=== PATIENT | male | born 1945 | race Caucasian/White ===

== ENCOUNTER 2016-09-29 10:59 | Inpatient (IN) | payer OTHER, MEDICAID ==
[~2016-09-29] VITALS: Ht 188 cm; Wt 60.8 kg
[~2016-09-29 10:59] MED LIST: ACET-6134 PO; ASCO500T45 PO; ASPI81EC97 PO; BENZ1TAB24 PO; CYAN500T8 PO; DEPSPR125 PO; DOCU-67 PO; EXE9.5T TD; LEVO500T6 GT; MAGN400S60 PO; MEMA10TA PO; PANT40EC PO; SIMV10TA1 PO; VITB12 PO
--- NOTE | 2016-09-29 10:59 | NUR ---
Patient [facility] from [facility], triaged by RN. Waiting for an available bed.
--- NOTE | 2016-09-29 11:11 | NUR ---
Patient transferred to bed 4 for further care. RN evaluating patient at bedside.
[2016-09-29 11:14] VITALS: BP 134/86
--- NOTE | 2016-09-29 11:15 | NUR ---
70 YO MALE BIB EMS FROM [facility] FOR G TUBE REPLACEMENT. HX OF EMENTIA& SCHIZOPHRENIA. PT ACTING NEUROLOGICALLY AT BASE LINE. DENIES N/V/D; SKIN IS PINK/WARM/DRY; AAOX4 WITH EVEN AND STEADY GAIT; LUNGS CLEAR BL; HR EVEN AND REGULAR; PT DENIES ANY FEVER, CP, SOB, OR COUGH AT THIS TIME; PATIENT STATES PAIN OF 0/10 AT THIS TIME; VSS; PATIENT POSITIONED FOR COMFORT; HOB ELEVATED; BEDRAILS UP X2; BED DOWN. ER MD MADE AWARE OF PT STATUS.
[2016-09-29] MEDS ORDERED: NACL 0.9% 1,000 ML IV SCH ×2 (11:38→13:05)
--- NOTE | 2016-09-29 11:38 | NUR ---
MD UNABLE TO PLACE G TUBE DUE TO STOMA BEING CLOSED. WILL ADMIT FOR FURTHER CARE.
[2016-09-29] MEDS ORDERED: FAMOTIDINE 20 MG/2 ML VIAL IVP ONE (11:40)
[2016-09-29] MEDS ORDERED: ONDANSETRON 4 MG/2 ML VIAL IVP ONE (11:40)
[2016-09-29] MEDS ORDERED: LORazepam 2 MG/ML VIAL IVP ONE (11:55)
[2016-09-29] MEDS ORDERED: LORazepam 2 MG/ML VIAL IM ONE (11:55)
[2016-09-29] MEDS ORDERED: LORazepam 2 MG/ML VIAL ONE (11:59)
[2016-09-29 12:21] LABS: BASOPHILS # (AUTO) 0.3 K/uL (0.00-0.22); BASOPHILS % (AUTO) 3.7 % (0.0-2.0); EOSINOPHILS # (AUTO) 0.1 K/uL (0-0.4); EOSINOPHILS % (AUTO) 1.2 % (0.0-4.0); HEMOGLOBIN 14.9 g/dL (12.0-18.0); LYMPHOCYTES # (AUTO) 1.9 K/uL (2.0-11.5); MEAN CORPUSCULAR HEMOGLOBIN 32 pg (27-31); MEAN CORPUSCULAR HGB CONC 32 g/dL (33-37); MEAN CORPUSCULAR VOLUME 100 fL (80-94); MONOCYTES # (AUTO) 0.4 K/uL (0.8-1.0); MONOCYTES % (AUTO) 6.1 % (1.7-9.3); NEUTROPHILS # (AUTO) 4.2 K/uL (1.8-7.7); PLATELET COUNT (AUTO) 166 K/uL (140-450); RED BLOOD CELL COUNT(AUTO) 4.61 MIL/uL (4.20-6.10); RED CELL DISTRIBUTION WIDTH 13.9 % (11.6-13.7); WHITE BLOOD COUNT (AUTO) 6.9 K/uL (4.8-10.8)
[2016-09-29] MEDS ORDERED: MULT1SGL58 PO (12:32)
[2016-09-29] MEDS ORDERED: DEP250L GT (12:32)
[2016-09-29] MEDS ORDERED: TYL650S GT (12:32)
[2016-09-29 12:48] LABS: ALBUMIN 3.2 g/dL (3.4-5.0); CALCIUM 9.1 mg/dL (8.5-10.1); CARBON DIOXIDE 30.8 mmol/L (21-32); CREATININE 0.8 mg/dL (0.7-1.3); TOTAL BILIRUBIN 0.3 mg/dL (0.0-1.0); TOTAL PROTEIN, SERUM 7.8 g/dL (6.4-8.2)
[2016-09-29 12:52] LABS: POTASSIUM 5.8 mmol/L (3.5-5.1)
[2016-09-29] MEDS ORDERED: HYDROcodone/APAP 7.5/325 MG 1 TAB PO PRN (13:05)
[2016-09-29] MEDS ORDERED: MORPHINE SULFATE 2 MG/ML SYR IVP PRN (13:05)
[2016-09-29] MEDS ORDERED: ONDANSETRON 4 MG/2 ML VIAL IM/IVP PRN (13:05)
[2016-09-29] MEDS ORDERED: ACETAMINOPHEN 325 MG TAB PO PRN (13:05)
[2016-09-29] MEDS ORDERED: DOCUSATE SODIUM 100 MG GELCAP PO PRN (13:05)
[2016-09-29 13:28] LABS: PROTHROMBIN TIME 9.9 secs (10.8-13.4)
[2016-09-29] MEDS ORDERED: diphenhydrAMINE 50 MG/ML VIAL IVP SCH (13:30)
[2016-09-29 13:37] LABS: CHOL/HDL RATIO 4.8 (1-4.5); FREE T4 (FREE THYROXINE) 0.98 ng/dL (0.76-1.46); MAGNESIUM 2.1 mg/dL (1.8-2.4); PHOSPHORUS 3.7 mg/dL (2.5-4.9); THYROID STIMULATING HORMONE 2.23 uIU/mL (0.34-3.74)
[2016-09-29] MEDS: NACL 0.9% 1,000 ML IV SCH ×2 (13:55→23:55)
--- NOTE | 2016-09-29 14:10 | NUR ---
ATTEMPTED TO DO EKG PT STILL REMAINS IN ED AT THIS TIME.
--- NOTE | 2016-09-29 14:20 | NUR ---
PT AWAKE AND ALERT, NO SIGNS OF ACUTE DISTRESS. BOWEL SOUNDS ACTIVE IN ALL 4 QUADRANTS. BOWEL AND BLADDER INCONTINENCE. BEDREST. IV PATENT AND ASYMPTOMATIC. PATIENT IN SOFT BILATERAL UPPER EXTREMITY RESTRAINTS. PT DENIES PAIN AT THIS TIME HOWEVER IS AGITATED. ORIENTED PATIENT TO UNIT AND TO HOSPITAL, PT VERBALIZED UNDERSTANDING HOWEVER IS CONFUSED. BED IN LOW POSITION WITH BILATERAL HALF SIDE RAILS UP AND CALL LIGHT WITHIN REACH.
--- NOTE | 2016-09-29 14:33 | NUR ---
Patient will be admitted to care of DR REYES. Admited toTELE. Will go to [id number]. Belongings list completed. Report to RADHA GOLDSMITH.
[2016-09-29 15:22] LABS: PARTIAL THROMBOPLASTIN TIME 22.9 secs (22-35.6)
--- NOTE | 2016-09-29 15:43 | NUR ---
EXPLAINED EKG PROCEDURE TO PT AND ATTEMPTED TO COMPLETE EKG PT BECAME ANGRY STATING HE DID NOT WANT EKG DONE. INDICATIONS EXPLAINED TO PT AND PT STILL REFUSED.
[2016-09-29 16:00] VITALS: BP 110/70
[2016-09-29] MEDS ORDERED: INSULIN LISPRO SLIDING SCALE 100 UNITS/ML VIAL SUBQ PRN (16:35)
[2016-09-29] MEDS ORDERED: DEXTROSE 50% 50 ML SYR IVP PRN (16:40)
[2016-09-29] MEDS: CARBIDOPA/LEVODOPA 25/100 MG 1 TAB PO SCH (17:00)
[2016-09-29] MEDS: VALPROATE SODIUM 500 MG in NACL 0.9% 100 ML IV SCH ×2 (17:47→21:00)
[2016-09-29] MEDS ORDERED: HALOPERIDOL IM 5 MG/ML VIAL IM PRN (17:55)
--- NOTE | 2016-09-29 19:36 | NUR ---
CALLED ON LINE PHARM[facility] AND SPOKE TO MELECIO TO CLARIFY NEXT DOSE OF DEPACON IVPB, A DOSE WAS GIVEN AT 1747 AND THE NEXT SCHEDULE DOSE AT 2100, SAID TO HOLD THE 2100 DOSE BECAUSE IT'S TOO CLOSE TO LAST DOSE, CORRIE FISHER MADE AWARE.
--- NOTE | 2016-09-29 19:37 | NUR ---
PATIENT IS CONFUSED AWAKE AND VERY RESTLESS IN BED,IVF INFUSING WELL AT THIS TIME IV SITE PATENT.NO COMPLAINS OF PAIN.PATIENT CONTINUES TO HAVE BILATERAL SOFT WRIST RESTRAINTS.FALL AND SAFETY PRECAUTIONS IMPLEMENTED.PATIENT CLOSE TO THE NURSES STATION AND HAS ALSO THE BED ALARM.WILL CONTINUE TO MONITOR.
[2016-09-29 20:00] VITALS: BP 127/74
[2016-09-29] MEDS: BLOOD GLUCOSE MONITORING 1 DEV DEV FS SCH (20:29)
--- NOTE | 2016-09-29 20:29 | NUR ---
PATIENT CURRENTLY SLEEPING. ACCUCHECK DONE AT THIS TIME. CONTINUES TO BE MONITORED.
--- NOTE | 2016-09-29 21:00 | NUR ---
Patient's Plan of Care was discussed and reviewed with JUNIOR PHP DEVELOPER: PHILLIP VIVEROS
--- NOTE | 2016-09-29 21:20 | NUR ---
PATIENT HAD XR OF ABDOMEN WITH CONTRAST AT BEDSIDE WITH PORTABLE X RAY MACHINE.
--- NOTE | 2016-09-29 22:31 | NUR ---
EXCHANGE WAS CALLED MD VILLALBA ELECTROMECHANIC FOR LORAINE MANN WILL WAIT FOR HIS CALL BACK.
--- NOTE | 2016-09-29 22:39 | NUR ---
MD VILLALBA CALLED BACK AND I INFORMED HIM THAT PATIENT POTASSIUM TODAY WAS HIGH 5.8 AND I WANTED TO KNOW IF HE WAS AWARE MD VILLALBA SAID I WILL TAKE CARE OF IT. I ALSO INFORMED MD THAT PATIENT IS INCONTINENT AND STARTING TO HAVE SOME PERINEAL REDNESS AND ASKED MD IF HE WOULD LIKE TO ORDER A SKIN PROTECTANT BARRIER. SAID I WILL TAKE CARE OF IT.I INFORMED MD THAT PATIENT HAD THE XRAY OF ABDOMEN TONIGHT AND THE RESULTS WON'T BE IN UNTIL TOMORROW I ASKED MD IF PATIENT SHOULD STILL BE KEPT NPO MD VILLALBA SAID HE WILL PLACE ORDERS.
--- NOTE | 2016-09-29 23:16 | NUR ---
I SPOKE TO JUNIOR LEGAL SECRETARY AND I INFORMED HER THAT ULTRASOUND ARTERIAL AND VENOUS BOTH LOWER EXTREMITIES IS PENDING.US TECH SAID SHE CAME EARLIER AND COULDN'T DO THE ULTRASOUND BECAUSE PATIENT WAS ON POSITION AND PATIENT WOULDN'T COOPERATIVE SO SHE SAID SHE WILL ENDORSE THE NEXT JUNIOR LEGAL SECRETARY TO DO IT TOMORROW MORNING.
[2016-09-29] MEDS ORDERED: LACTULOSE 20 GM/30 ML UDC PO SCH (23:35)
[2016-09-29] MEDS ORDERED: SODIUM POLYSTYRENE 15 GM/60 ML UDBTL PR SCH (23:35)
[2016-09-30] VITALS: BP 113/73
--- NOTE | 2016-09-30 00:24 | NUR ---
PATIENT RESTLESS IN BED AND SLEEPS ON AND OFF.WILL CONTINUE TO MONITOR.
--- NOTE | 2016-09-30 02:28 | NUR ---
PATIENT IS CURRENTLY SLEEPING WITH PERIODS OF RESTLESSNESS.WILL CONTINUE TO MONITOR.
--- NOTE | 2016-09-30 03:30 | NUR ---
PATIENT IS CURRENTLY RESTING IN BED SLEEPING WITH PERIODS OF RESTLESSNESS.CONTINUES TO BE MONITORED AND REPOSITIONED.WILL CONTINUE TO MONITOR.
[2016-09-30 04:07] VITALS: BP 146/81
--- NOTE | 2016-09-30 06:00 | NUR ---
PATIENT RESTING IN BED HAS PERIODS OF COMBATIVENESS AND ATTEMPTS TO KICK STAFF.PATIENT WAS CLEANED EARLIER WITH THE ASSISTANCE OF KIMMY MILNER, AND KIMMY RODRIGUEZ, AND MYSELF.PATIENT CONTINUES TO POOP.PATIENT CURRENTLY STABLE WILL CONTINUE TO MONITOR.CALL LIGHT WITHIN REACH.
[2016-09-30 06:32] LABS: ANION GAP 11.8 (8-16); CALCIUM 8.5 mg/dL (8.5-10.1); CARBON DIOXIDE 27.6 mmol/L (21-32); CREATININE 0.7 mg/dL (0.7-1.3); POTASSIUM 5.4 mmol/L (3.5-5.1)
--- NOTE | 2016-09-30 06:38 | NUR ---
PATIENT HAS BEEN SCREENED AND CATEGORIZED HIGH NUTRITION RISK. PATIENT WILL BE SEEN WITHIN 1-2 DAYS OF ADMISSION. 09/30/16-10/01/16 KRYSTAL BUTTERFIELD MS, RDN
--- NOTE | 2016-09-30 07:30 | NUR ---
PATIENT STABLE REPORT ENDORSED TO RADHA HOLLOWAY AT BEDSIDE SHE WILL RESUME CARE OF THE PATIENT. RESIDENT MADE ROUNDS THIS MORNING AND WAS INFORMED OF PATIENT'S STATUS AND BEHAVIOUR DURING THE NIGHT.
--- NOTE | 2016-09-30 07:31 | NUR ---
PT AWAKE, ALERT, AND CONFUSED. NO SIGNS OF ACUTE DISTRESS. ON ROOM AIR. BOWEL SOUNDS ACTIVE IN ALL 4 QUADRANTS. BOWEL AND BLADDER INCONTINENCE. SKIN INTACT. GASTROSTOMY TUBE IN PLACE. PATIENT DENIES PAIN AT THIS TIME, IS CONFUSED, FLACC SCORE IS 0. RE-ORIENTED PATIENT TO HOSPITAL AND TO UNIT, PT UNABLE TO COMPREHEND. BED IN LOW POSITION WITH BILATERAL HALF SIDE RAILS UP, CALL LIGHT WITHIN REACH.
[2016-09-30] MEDS ORDERED: HALOPERIDOL IM 5 MG/ML VIAL IM PRN (07:40)
[2016-09-30 08:00] VITALS: BP 125/70
[2016-09-30] MEDS: CARBIDOPA/LEVODOPA 25/100 MG 1 TAB PO SCH ×3 (08:00→18:03)
[2016-09-30] MEDS ORDERED: ZINC OXIDE 113 GM TUBE TP PRN (08:00)
[2016-09-30] MEDS: PANTOPRAZOLE 40 MG INJ VIAL IVP SCH (08:13)
[2016-09-30] MEDS: VALPROATE SODIUM 500 MG in NACL 0.9% 100 ML IV SCH ×2 (08:14→20:57)
[2016-09-30] MEDS: BLOOD GLUCOSE MONITORING 1 DEV DEV FS SCH ×4 (08:22→20:34)
[2016-09-30] MEDS: DOCUSATE 100 MG/10 ML UDC GT SCH (08:23)
[2016-09-30] MEDS: ASPIRIN 81 MG TAB.CHEW PO SCH (08:25)
[2016-09-30] MEDS ORDERED: QUEtiapine FUMARATE 25 MG TAB PO SCH (09:00)
[2016-09-30] MEDS ORDERED: PANTOPRAZOLE 40 MG TABEC PO SCH (09:00)
[2016-09-30] MEDS: NACL 0.9% 1,000 ML IV SCH ×2 (10:34→18:13)
[2016-09-30 12:00] VITALS: BP 126/58
--- NOTE | 2016-09-30 13:15 | NUR ---
PT EXTREMELY AGITATED, KICKING AND YELLING. GAVE HALDOL IM ORDERED PRN. WILL CONTINUE TO MONITOR.
--- NOTE | 2016-09-30 13:16 | NUR ---
STARTED PATIENT G -TUBE FEEDING, FIBERSOURCE 60ML PER HOUR, 75ML WATER FLUSH Q 4 HRS. WILL MONITOR.
[2016-09-30 16:00] VITALS: BP 138/75
--- NOTE | 2016-09-30 19:16 | NUR ---
PT AWAKE, ALERT AND CONFUSED, NO SIGNS OF ACUTE DISTRESS. ENDORSED TO CHAIN FORMING MACHINE OPERATOR NURSE FOR CONTINUITY OF CARE.
--- NOTE | 2016-09-30 19:17 | NUR ---
PATIENT RECEIVED CURRENTLY SLEEPING GTUBE FEEDING CURRENTLY INFUSING WELL,PT TOLERATING FEEDING WELL NO SIGNS OR SYMPTOMS OF N/V AT THIS TIME.PATIENT CONTINUES TO BE ON BILATERAL SOFT WRIST RESTRAINTS.BED ALARM ON WILL CONTINUE TO MONITOR.FREQUENT VISUAL CHECKS DONE.
[2016-09-30 20:00] VITALS: BP 136/80
--- NOTE | 2016-09-30 20:30 | NUR ---
PATIENT WAS CLEANED WITH THE ASSISTANCE OF YAMEL MILNER AND [facility] PATIENT WAS TURNED AND REPOSITIONED GOOD PERICARE GIVEN, PERINEAL AND SCROTAL AREA WITH REDNESS PATIENT HAS AN ORDER FOR DESITIN BUT THERE IS NONE AVAILABLE TONIGHT.PATIENT CLEANED AND REPOSITIONED.PATIENT CONTINUES TO YELL,KICK,CURSE,AND ATTEMPTS TO SCRATCH STAFF.PATIENT NEEDS CONTINUE TO BE MET PATIENT PLACED ON FALL PRECAUTIONS.WILL CONTINUE TO MONITOR.
--- NOTE | 2016-09-30 22:00 | NUR ---
Patient's Plan of Care was discussed and reviewed with HOTEL ATTENDANT:PHILLIP VIVEROS
--- NOTE | 2016-09-30 22:55 | NUR ---
PATIENT IS CURRENTLY SLEEPING IN BED AT THIS TIME. MACHINE CELL TUBER WAS HERE EARLIER AND DID A ULTRASOUND TO BOTH LOWER EXTREMITIES.PATIENT WAS KICKING AT TIMES FEET AT TIMES HIS LEGS HAD TO BE HELD.PATIENT KEPT SITTING UP DURING THE ULTRASOUND AND WE KEPT TELLING THE PATIENT TO LAY DOWN AND RELAX.AND PATIENT WAS ATTEMPTING TO GRAB THE ULTRASOUND DEVICE.FINALLY THE ULTRASOUND WAS DONE.
[2016-10-01 00:12] VITALS: BP 107/69
--- NOTE | 2016-10-01 00:36 | NUR ---
PATIENT IS CURRENTLY SLEEPING IN BED IN NO DISTRESS WILL CONTINUE TO MONITOR.
--- NOTE | 2016-10-01 00:50 | NUR ---
PATIENT AWAKENED TO BE CLEANED UP PATIENT SOILED AND HAS POOPED PATIENT WAS CLEANED WITH YAMEL SPRINGER AND MYSELF.PATIENT CONTINUES TO YELL ATTEMPTS TO KICK PATIENT WAS ABLE TO BE CLEANED TURNED AND REPOSITIONED.GTUBE FEEDING CONTINUES TO INFUSE WELL.NO RESIDUAL NOTED AT THIS TIME.PATIENT WAS ALSO PULLED UP IN BED AND ACCOMODATED. PATIENT WAS THEN GIVEN A WARM BLANKET.PATIENT NEEDS CONTINUE TO BE MET.PATIENT IS CLEAN AND COMFORTABLE.
--- NOTE | 2016-10-01 02:30 | NUR ---
PATIENT SLEEPING IN BED WILL CONTINUE TO MONITOR.
--- NOTE | 2016-10-01 04:13 | NUR ---
PATIENT IS CURRENTLY SLEEPING AT THIS TIME WITH PERIODS OF RESTLESSNESS.IVF INFUSING WELL WILL CONTINUE TO MONITOR.
[2016-10-01 04:55] VITALS: BP 125/70
[2016-10-01] MEDS: NACL 0.9% 1,000 ML IV SCH (04:59)
[2016-10-01 06:07] LABS: ANION GAP 11.7 (8-16); CALCIUM 7.7 mg/dL (8.5-10.1); CREATININE 0.6 mg/dL (0.7-1.3); POTASSIUM 3.7 mmol/L (3.5-5.1)
[2016-10-01] MEDS: BLOOD GLUCOSE MONITORING 1 DEV DEV FS SCH ×2 (06:09→12:22)
--- NOTE | 2016-10-01 06:58 | NUR ---
PATIENT STABLE RESTING IN BED I WAS UNABLE TO COLLECT URINALYSIS THROUGHT THE NIGHT PATIENT WAS INCONTINENT AND HAD STOOL MIX WITH THE URINE AND PATIENT THIS MORNING IS CALM AND COOPERATIVE BUT DRY AT THIS TIME.
--- NOTE | 2016-10-01 07:25 | NUR ---
PATIENT IS CURRENTLY STABLE REPORT ENDORSED AT BEDSIDE TO RADHA HOLLOWAY SHE WILL RESUME CARE.
--- NOTE | 2016-10-01 07:26 | NUR ---
PT AWAKE AND ALERT, NO SIGNS OF ACUTE DISTRESS. BOWEL SOUNDS ACTIVE IN ALL 4 QUADRANTS. SKIN INTACT. BOWEL AND BLADDER INCONTINENCE. IV PATENT AND ASYMPTOMATIC. BEDBOUND. RE-ORIENTED PATIENT TO UNIT AND TO HOSPITAL, PT UNABLE TO COMPREHEND, NEEDS REINFORCEMENT. PATIENT DENIES PAIN AT THIS TIME, FLACC SCORE = 0. BED IN LOW POSITION WITH BILATERAL HALF SIDE RAILS UP, CALL LIGHT WITHIN REACH.
[2016-10-01 08:00] VITALS: BP 119/89
[2016-10-01] MEDS ORDERED: ZINC OXIDE 113 GM TUBE TP PRN (08:14)
[2016-10-01] MEDS ORDERED: QUEtiapine FUMARATE 25 MG TAB PO SCH (09:00)
[2016-10-01] MEDS: VALPROATE SODIUM 500 MG in NACL 0.9% 100 ML IV SCH (09:08)
[2016-10-01] MEDS: CARBIDOPA/LEVODOPA 25/100 MG 1 TAB PO SCH ×2 (09:09→12:28)
[2016-10-01] MEDS: ASPIRIN 81 MG TAB.CHEW PO SCH (09:09)
[2016-10-01] MEDS: DOCUSATE 100 MG/10 ML UDC GT SCH (09:09)
[2016-10-01] MEDS: PANTOPRAZOLE 40 MG INJ VIAL IVP SCH (09:10)
[2016-10-01 10:24] LABS: HEMOGLOBIN A1C 5.3 % (4.8-5.6); T4 (THYROXINE) 8.9 ug/dL (4.5 - 12.0)
--- NOTE | 2016-10-01 10:44 | NUR ---
SS NOTE: PER DAVIDSON FROM [facility] ([phone]), PT CAN GO TO ROOM 130A ANYTIME AFTER [address] FREDY MINA. DIGNA CHAVIS AND DR. SULLIVAN MADE AWARE.
--- NOTE | 2016-10-01 10:49 | NUR ---
INFORMED THE PATIENT THAT AN ECHO WAS ORDERED TO CHECK HIS HEART. TRIED TO GET CONSENT FOR 5-10 MIN HOWEVER HE KEPT REPEATING "NOTHING IS WRONG WITH ME, EVERYTHING IS FINE" NOTIFIED DR. PALAFOX ABOUT THE OUTCOME.
--- NOTE | 2016-10-01 11:04 | NUR ---
10/01/16 RD INITIAL ASSESSMENT COMPLETED PLEASE REFER TO NUTRITION ASSESSMENT UNDER CARE ACTIVITY FOR ESTIMATED NUTRITIONAL NEEDS. 1. CONTINUE CURRENT TF - FIBERSOURCE HN AT GOAL RATE OF 60 ML/HR. IF NEEDED, 140 ML WATER FLUSH Q6H (PROVIDES 560 ML FREE WATER TOTAL) 2. RD TO FOLLOW-UP 2-3 DAYS; HIGH RISK DADA ARTHUR, TRISTIN
--- NOTE | 2016-10-01 11:05 | NUR ---
RECEIVED NEW ORDERS FROM DR SULLIVAN, NOTED, WILL CARRY OUT.
[2016-10-01 12:00] VITALS: BP 138/85
--- NOTE | 2016-10-01 13:45 | NUR ---
SPOKE WITH SON, KELLI MONETMUNDS AND INFORMED HIM OF PATIENT TRANSPORT TO [facility]. SON WILL FOLLOW UP WITH TUPELO.
--- NOTE | 2016-10-01 14:01 | NUR ---
GAVE REPORT TO CANDELARIO AT [facility] IN [place], PATIENT HEATER OPERATOR HELPER TIME IS [id number].
--- NOTE | 2016-10-01 14:28 | NUR ---
Transportation arranged with ELISEO. supervisor securities vault at 1530. to go back to [facility] room 130-A.
--- NOTE | 2016-10-01 15:10 | NUR ---
PT AWAKE AND ALERT, NO SIGNS OF ACUTE DISTRESS. EDUCATED PATIENT REGARDING TRANSPORT AND DISCHARGE TO [facility] ON SIGNS AND SYMPTOMS OF WORSENING CONDITION AND INFECTION, FOLLOW UP WITH DR MINA AT [place] AND CURRENT MEDICATIONS. PT UNABLE TO COMPREHEND OR SIGN HIS DISCHARGE PAPERS. CUT OFF WRIST BANDS, D/C'D IV AND TELE MONITOR. PT LEFT VIA [facility] TO [facility]. SON/CONSERVATOR MADE AWARE.
== END 2016-10-01 15:10 | DRG 393 ==
LOC: MED 10:59 → MTU 13:07
PROVIDERS: ADMIT Student in an Organized Health Care Education/Training Program; ATTEND Student in an Organized Health Care Education/Training Program
PROC: 0D20XUZ Change Feeding Device in Upper Intestinal Tract, External Approach (ICD-10-PCS; principal; 2016-09-29)
DX: K94.23 Gastrostomy malfunction (principal); G93.41 Metabolic encephalopathy; E44.0 Moderate protein-calorie malnutrition; E87.0 Hyperosmolality and hypernatremia; Z68.1 Body mass index [BMI] 19.9 or less, adult; E86.0 Dehydration; G30.9 Alzheimer's disease, unspecified; F02.80 Dementia in other diseases classified elsewhere, unspecified severity, without behavioral disturbance, psychotic disturbance, mood disturbance, and anxiety; K21.9 Gastro-esophageal reflux disease without esophagitis; F20.9 Schizophrenia, unspecified; I10 Essential (primary) hypertension; J45.909 Unspecified asthma, uncomplicated; E11.65 Type 2 diabetes mellitus with hyperglycemia; E78.2 Mixed hyperlipidemia; I70.209 Unspecified atherosclerosis of native arteries of extremities, unspecified extremity; E87.5 Hyperkalemia; I69.991 Dysphagia following unspecified cerebrovascular disease; Z88.2 Allergy status to sulfonamides; Z79.82 Long term (current) use of aspirin; Z79.899 Other long term (current) drug therapy; Y83.3 Surgical operation with formation of external stoma as the cause of abnormal reaction of the patient, or of later complication, without mention of misadventure at the time of the procedure; Y92.89 Other specified places as the place of occurrence of the external cause
CPT/HCPCS: 36415; 43760; 71010; 74241; 80048; 80053; 82150; 82948; 83036; 83690; 83735; 83880; 84100; 84436; 84439; 84443; 84479; 85025; 85610; 85730; 87081; 93005; 93925; 93970; 96361; 96372; 96374; 96375; 99285; C1758; C9113; J1200; J1630; J1815; J2060; J2270; J2405; J3490; J7030; Q0092

== ENCOUNTER 2016-10-06 07:35 | Emergency (ER) | payer OTHER, MEDICAID ==
[~2016-10-06] VITALS: Ht 188 cm; Wt 77.1 kg
[~2016-10-06 07:35] MED LIST changes: -ACET-6134 PO; -ASCO500T45 PO; -BENZ1TAB24 PO; -CYAN500T8 PO; +DEP250L GT; -DEPSPR125 PO; -EXE9.5T TD; -LEVO500T6 GT; -MEMA10TA PO; +MULT1SGL58 PO; -SIMV10TA1 PO; +TYL650S GT; -VITB12 PO
--- NOTE | 2016-10-06 07:35 | NUR ---
Patient was BIBA and taken to bed 05 via gurney per EMS.
[2016-10-06 07:38] VITALS: BP 130/88
[2016-10-06] MEDS ORDERED: CARB1TAB8 GT (07:50)
--- NOTE | 2016-10-06 07:50 | NUR ---
Dr. Howard evaluating patient at bedside.
--- NOTE | 2016-10-06 07:50 | NUR ---
70/M POLLO FROM [facility] AFTER G-TUBE REMOVAL 0500 TODAY. PATIENT HAS HX DEMENTIA ALZHEIMERS, PARKINSONS, DM, TIA AND IS A POOR HISTORIAN. DENIES PAIN. NO S/S OF ACUTE DISTRESS. DENIES N/V/D; SKIN IS PINK/WARM/DRY; AAOX4 WITH EVEN AND STEADY GAIT; LUNGS CLEAR BL; HR EVEN AND REGULAR; PT DENIES ANY FEVER, CP, SOB AT THIS TIME; PATIENT STATES PAIN OF 0/10 AT THIS TIME; VSS; PATIENT POSITIONED FOR COMFORT; HOB ELEVATED; BEDRAILS UP X2; BED DOWN. ER MD MADE AWARE OF PT STATUS.
--- NOTE | 2016-10-06 08:00 | NUR ---
PATIENT HAD G-TUBE REPLACED AT BEDSIDE PER DR. REN.
--- NOTE | 2016-10-06 08:15 | NUR ---
XRAY at bedside.
--- NOTE | 2016-10-06 08:36 | NUR ---
PATIENT HAD XRAY ABD AT BEDSIDE WITH AND WITHOUT CONTRAST.
--- NOTE | 2016-10-06 08:54 | NUR ---
[facility] transport team at bedside.
--- NOTE | 2016-10-06 08:56 | NUR ---
REPORT GIVEN TO RADHA MARSHALL AT [facility]. EMR HERE TO TRANSPORT PATIENT BACK TO NURSING FACILITY. X-RAY G TUBE PLACEMENT CONFIRMED PER MD REN. NO S/S OF ACUTE DISTRESS.
[2016-10-06 08:58] VITALS: BP 130/88
== END 2016-10-06 08:56 ==
LOC: MED 07:35
DX: Z43.1 Encounter for attention to gastrostomy (principal); K21.9 Gastro-esophageal reflux disease without esophagitis; I10 Essential (primary) hypertension; G30.9 Alzheimer's disease, unspecified; F02.80 Dementia in other diseases classified elsewhere, unspecified severity, without behavioral disturbance, psychotic disturbance, mood disturbance, and anxiety; Z79.899 Other long term (current) drug therapy; Z86.73 Personal history of transient ischemic attack (TIA), and cerebral infarction without residual deficits
CPT/HCPCS: 43760; 74241; 99284; Q0092